=== PATIENT | female | born 1950 ===

== ENCOUNTER 2018-11-11 11:54 | Outpatient (CLI) | payer OTHER ==
[~2018-11-11 11:54] MED LIST: ALENDRONATE SODI5 MG
== END 2018-11-11 15:48 | disposition home or self-care (01) ==
LOC: MAMO-SONO 11:54
DX: Z12.31 Encounter for screening mammogram for malignant neoplasm of breast (principal); Z87.898 Personal history of other specified conditions; N60.11 Diffuse cystic mastopathy of right breast; N60.12 Diffuse cystic mastopathy of left breast

== ENCOUNTER 2018-12-25 10:13 | Outpatient (CLI) | payer OTHER | END 2018-12-25 10:26 | disposition home or self-care (01) | LOC: NUCLEAR 10:13 | DX: I87.2 Venous insufficiency (chronic) (peripheral) (principal) ==